=== PATIENT | male | born 1960 | race Caucasian/White ===

== ENCOUNTER 2017-09-27 22:02 | Inpatient (IN) | payer OTHER ==
[2017-09-28 00:05] LABS: Troponin I 0.862 ng/mL (< 0.028)
[2017-09-28] MEDS ORDERED: Ondansetron PF 4 MG/2 ML Vial IVP PRN (01:06)
[2017-09-28] MEDS ORDERED: Acetaminophen 325 MG TAB PO PRN (01:06)
[2017-09-28] MEDS ORDERED: Ondansetron ODT 4 MG TAB SL PRN (01:06)
[2017-09-28] MEDS ORDERED: Lactated Ringer's 1,000 ML IV SCH (01:15)
[2017-09-28 03:09] LABS: Troponin I 1.287 ng/mL (< 0.028)
[2017-09-28] MEDS ORDERED: Metoprolol Tartrate 25 MG TAB PO SCH ×2 (04:00→09:00)
[2017-09-28] MEDS ORDERED: Atorvastatin Calcium 20 MG TAB PO SCH ×2 (04:00→21:00)
[2017-09-28] MEDS ORDERED: Sodium Chloride 0.9% 1,000 ML IV SCH ×2 (04:00→12:15)
--- NOTE | 2017-09-28 07:29 | HP ---
PRIMARY CARE PHYSICIAN: Not reported. CODE STATUS: FULL CODE. TIME OF EVALUATION: 5 pm CHIEF COMPLAINT: Chest pain. HISTORY OF PRESENT ILLNESS: This is a 56-year-old male patient with past medical history of hyperlipidemia, who presents to the ED in [place] due to chest pain. The patient reported it was left-sided, the first time in his life that he is feeling the chest pain, lasted for 15 minutes, it got better by itself, pressure-like, no clear triggers, no alleviating factors. Initial troponin 0.3 has come up to 1.0, admitted to the hospital for non-STEMI. REVIEW OF SYSTEMS: Constitutional: No fever, no chills, generalized weakness. Respiratory: No cough, sputum production or shortness of breath. Cardiovascular: Chest pain as described in HPI. No palpitation or shortness of breath. Gastrointestinal: No nausea, no vomiting, diarrhea or abdominal pain. Central Nervous System: No dizziness, headache or feeling lightheaded. Genitourinary: No burning on urination. Extremities: No leg swelling. All other systems were reviewed and negative except for the findings mentioned above. PAST MEDICAL HISTORY: Hepatitis C, history of kidney stones, hyperlipidemia, high cholesterol. PAST SURGICAL HISTORY: No surgical history. PSYCHIATRIC HISTORY: No previous psychiatric history. SOCIAL HISTORY: History of abusing methamphetamines, last time use was years ago. Former cigarette smoker, quit less than 10 years ago. KNOWN ALLERGIES: No known drug allergies. REPORTED MEDICATIONS: None. PHYSICAL EXAMINATION: VITAL SIGNS: Blood pressure 145/95 with heart rate 68, respiratory rate was 24 , temperature 98.2, oxygen saturation 95% on room air. GENERAL APPEARANCE: Patient is alert, oriented, not in any acute distress. HEENT: Eyes: Normal conjunctivae. Moist oral mucosa. Anicteric. NECK: No JVD. RESPIRATORY: Bilateral air entry. No rales, no wheezing. Symmetric expansion. CARDIOVASCULAR: Normal rate, regular rhythm. No murmurs, no gallop. No edema. ABDOMEN: Soft, normal bowel sounds. MUSCULOSKELETAL: Baseline range of motion and strength. No tenderness. SKIN: Warm and intact. No pallor, no rash, no redness. NEUROLOGIC: Baseline sensorium. No evidence of any new focal weakness. Baseline speech. Cranial nerves seem to be intact. PSYCHIATRIC: The patient is in good mood. No anxiety, oriented. No optimal judgment. IMAGING: EKG was reviewed, normal sinus rhythm with a rate of 67, MO 166, QRS 78, QT corrected 395. LABORATORY DATA: Reviewed. White count 3.7, hemoglobin 15.4, MCV 82, platelet count 195,000. Chemistry: Sodium 140, potassium 4.1, chloride 105, carbon dioxide 23, anion gap 16, BUN 8, creatinine 0.8, GFR greater than 90, glucose 136. LFTs were negative. Troponin, the last one was 1.2, initially was 0.3 and 0.8. ASSESSMENT AND PLAN: The patient will be placed in the hospital for the following medical problems. 1. Ebf-JF-[id number] elevation myocardial infarction, the patient has been placed in anticoagulation, aspirin, beta giovanna, statin. Further treatment as per Cardiology recommendation, likely to do cardiac cath . 2. Hyperlipidemia, low cholesterol diet is advised, started on statins. 3. Deep venous thrombosis prophylaxis. MTDD
[2017-09-28] MEDS ORDERED: Enoxaparin Sodium 80 MG/0.8 ML SYRINGE SC SCH (08:00)
[2017-09-28] MEDS ORDERED: Aspirin 325 MG TAB PO SCH (08:00)
[2017-09-28] MEDS: Metoprolol Tartrate 25 MG TAB PO SCH ×2 (08:47→20:12)
[2017-09-28] MEDS ORDERED: Communication Order-Pharmacy FS SCH (09:15)
[2017-09-28] MEDS ORDERED: Nitroglycerin 0.4 MG TAB (25 Tab Bottle) SL PRN (12:01)
[2017-09-28] MEDS ORDERED: Lisinopril 2.5 MG TAB PO SCH (13:15)
[2017-09-28] MEDS ORDERED: Iopamidol 370 76% 100 ML VIAL ONE (14:42)
[2017-09-28] MEDS: TICAGRELOR 90 MG TABLET PO SCH (20:11)
[2017-09-29 05:25] VITALS: BMI 26.4
[2017-09-29 05:32] LABS: Hemoglobin 14.7 g/dL (14.0-18.0); Platelet Count 165 thou/uL (130-400)
[2017-09-29 05:33] LABS: #Basophils 0.1 thou/uL (0.0-0.2); #Eosinphils 0.2 thou/uL (0.0-0.7); #Lymphocytes 2.5 thou/uL (1.20-3.40); #Monocytes 0.7 thou/uL (0.11-0.59); #Neutrophils 5.8 thou/uL (1.40-6.50); %Basophils 0.7 % (0.0-1.0); %Eosinophils 1.7 % (0.0-10.0); %Monocytes 7.7 % (0.0-10.0); %Neutrophils 62.9 % (42.0-75.0); Hemoglobin 14.8 g/dL (14.0-18.0); Mean Corpuscular HGB CONC 34.5 g/dL (32.0-36.0); Mean Corpuscular Hemoglobin 31.4 pg (27.0-31.0); Mean Corpuscular Volume 91.1 fL (78.0-98.0); Mean Platelet Volume 8.4 fL (7.4-10.4); Platelet Count 170 thou/uL (130-400); RBC Distribution Width 13.3 % (11.5-14.5); Red Blood Cell (RBC) Count 4.72 mill/uL (4.70-6.10); White Blood Cell (WBC) Count 9.2 thou/uL (4.8-10.8)
[2017-09-29 05:42] LABS: ALT (SGPT) 21 U/L (8-55); AST (SGOT) 16 U/L (5-34); Albumin 3.9 g/dL (3.5-5.0); Alkaline Phosphatase 57 U/L (40-150); Anion Gap 14 mmol/L (10-20); BUN (Urea Nitrogen) 9 mg/dL (8.4-25.7); Bilirubin, Total 0.4 mg/dL (0.2-1.2); Calc. Creatinine Clearance 120 mL/min (70-130); Calcium 9.2 mg/dL (7.8-10.44); Carbon Dioxide 19 mmol/L (22-29); Chloride 108 mmol/L (98-107); Estimated GFR-MDRD Greater than 90; Globulin 2.5 g/dL (2.4-3.5); Glucose 92 mg/dL (70-105); Potassium 4.1 mmol/L (3.5-5.1); Protein, Total 6.4 g/dL (6.0-8.3); Sodium 137 mmol/L (136-145)
[2017-09-29] MEDS: Lisinopril 2.5 MG TAB PO SCH (08:26)
[2017-09-29] MEDS: TICAGRELOR 90 MG TABLET PO SCH ×2 (08:26→20:30)
[2017-09-29] MEDS: Metoprolol Tartrate 25 MG TAB PO SCH (08:26)
--- NOTE | 2017-09-29 08:47 | PDOC.PN ---
- Subjective Encounter Start Date: 09/29/17 Encounter Start Time: 08:45 Mr. Bear was seen today in follow-up of CAD. Hehas had a STENT placed to the LAD. He does not have any complaints this morning. - Objective MAR Reviewed: Yes Vital Signs & Weight: Vital Signs (12 hours) Temp Pulse Resp BP Pulse Ox 09/29/17 08:22 97.3 F L 62 16 113/71 94 L 09/29/17 04:00 97.5 F L 57 L 112/75 96 09/29/17 00:00 55 L 111/66 Weight Weight 163 lb 11.2 oz I&O: 09/28/17 09/29/17 09/30/17 06:59 06:59 06:59 Intake Total 250 1987 Output Total 1645 Balance 250 342 Result Diagrams: 09/29/17 05:17 09/29/17 05:14 Phys Exam - Physical Examination HEENT: PERRLA Respiratory: no wheezing, no rales, no rhonchi, clear to auscultation bilateral Cardiovascular: RRR, no significant murmur, no rub Gastrointestinal: soft, non-tender, positive bowel sounds Musculoskeletal: no edema Dx/Plan (1) NSTEMI (non-ST elevated myocardial infarction) Code(s): I21.4 - NON-ST ELEVATION (NSTEMI) MYOCARDIAL INFARCTION Status: Acute (2) Hypertension Code(s): I10 - ESSENTIAL (PRIMARY) HYPERTENSION Status: Acute (3) Dyslipidemia Code(s): E78.5 - HYPERLIPIDEMIA, UNSPECIFIED Status: Acute - Plan * CAD s/p STENT to the LAD- he is clinically stable * HTN- his blood pressure has been a bit low- medications are to be adjusted by Cardiology * Dyslipidemia- patient has known hyperlipdemia , but a history of being sensitive to statins- will check his levels. * Dispo per Cardiology
[2017-09-29 09:24] LABS: Cardiac Risk 9.7 (Less than 4.5); Cholesterol 331 mg/dl (< 200 Desired); HDL Cholesterol 34 mg/dL (>60 Neg Risk); Triglycerides 785 mg/dL (Less than 150)
[2017-09-29] MEDS: ICOSAPENT ETHYL PO SCH (20:30)
[2017-09-29] MEDS: [UNRECOGNIZED DRUG - OTHER] PO SCH (20:30)
[2017-09-29] MEDS ORDERED: Rosuvastatin 10 MG TAB PO SCH (21:00)
[2017-09-30 08:03] VITALS: BP 107/79; TEMP 98
[2017-09-30] MEDS: ICOSAPENT ETHYL PO SCH (08:26)
[2017-09-30] MEDS: [UNRECOGNIZED DRUG - OTHER] PO SCH (08:26)
[2017-09-30] MEDS: Lisinopril 2.5 MG TAB PO SCH (08:28)
[2017-09-30] MEDS: TICAGRELOR 90 MG TABLET PO SCH (08:28)
--- NOTE | 2017-09-30 09:02 | PDOC.PN ---
- Subjective Encounter Start Date: 09/30/17 Encounter Start Time: 09:01 Mr. Bear was seen today in follow-up. He does not have any complaints this morning. - Objective MAR Reviewed: Yes Vital Signs & Weight: Vital Signs (12 hours) Temp Pulse Resp BP Pulse Ox 09/30/17 08:00 98 F 66 18 107/79 09/30/17 04:00 98.5 F 65 20 117/71 95 Weight Weight 161 lb 8 oz I&O: 09/29/17 09/30/17 10/01/17 06:59 06:59 06:59 Intake Total 1987 840 Output Total 1645 Balance 342 840 Result Diagrams: 09/29/17 05:17 09/29/17 05:14 Phys Exam - Physical Examination HEENT: PERRLA Respiratory: no wheezing, no rales, no rhonchi, clear to auscultation bilateral Cardiovascular: RRR, no significant murmur, no rub Gastrointestinal: soft, non-tender, positive bowel sounds Musculoskeletal: no edema Dx/Plan (1) NSTEMI (non-ST elevated myocardial infarction) Code(s): I21.4 - NON-ST ELEVATION (NSTEMI) MYOCARDIAL INFARCTION Status: Acute (2) Hypertension Code(s): I10 - ESSENTIAL (PRIMARY) HYPERTENSION Status: Acute (3) Dyslipidemia Code(s): E78.5 - HYPERLIPIDEMIA, UNSPECIFIED Status: Acute - Plan * NSTEMI- stable * HTN- blood pressure is stable * Discussed with Cardiology- he can be discharged home today..
--- NOTE | 2017-09-30 14:28 | DIS ---
PRIMARY CARE PHYSICIAN: The patient does not have a primary care physician. DATE OF ADMISSION: 09/27/2017 DATE OF DISCHARGE: 09/30/2017 DISCHARGE DISPOSITION: Home. PRIMARY DISCHARGE DIAGNOSES: 1. Yqi-GN-cmjbsci elevation myocardial infarction. 2. Dyslipidemia. 3. Hypertension. DISCHARGE MEDICATIONS: Include Vascepa 2 grams twice a day, Brilinta 90 mg twice daily, Crestor 10 m g daily, metoprolol XL 30 mg daily, aspirin 81 mg a day. PROCEDURES DONE DURING ADMISSION: The patient had a cardiac catheterization and had a stent placed t o the LAD with a drug-eluting stent and there was some severe proximal LAD disease seen. The patient also had an echocardiogram that showed an ejection fraction of 50-55%. The apex was hypokinetic. CODE STATUS: Full code. ALLERGIES: No known drug allergies. HOSPITAL COURSE: Mr. Bear is a pleasant 56-year-old gentleman who presented to the emergency room w ith complaints of chest pain. He was evaluated in the ER, and it was noted that he had elevated trop onins, which peaked at 1.287. He was taken emergently to the [facility] and underwent a successful PCI and stent placement to the LAD. He was monitored in the hospital overnight and did not have any fur ther complaints. He had been on statins before, but had stopped taking them due to the elevated live r function test. These will be restarted at least temporarily as well as placing him on Vascepa and he will follow up with Dr. Hung as recommended.
--- NOTE | 2017-10-09 11:17 | EKG ---
Test Reason : Blood Pressure : / mmHG Vent. Rate : 067 BPM Atrial Rate : 067 BPM P-R Int : 166 ms QRS Dur : 078 ms QT Int : 374 ms P-R-T Axes : 065 022 049 degrees QTc Int : 395 ms Normal sinus rhythm Normal ECG Confirmed by MARTI COOL DO ([id number]), field map editor LAURE PEDERSON ([id number] on 10/09/2017 11:17:40 AM Referred By: Confirmed By:MARTI COOL DO
--- NOTE | 2017-12-20 16:51 | EKG ---
Test Reason : POST STENT Blood Pressure : / mmHG Vent. Rate : 055 BPM Atrial Rate : 055 BPM P-R Int : 160 ms QRS Dur : 098 ms QT Int : 482 ms P-R-T Axes : 008 094 096 degrees QTc Int : 461 ms Sinus bradycardia Rightward axis T wave abnormality, consider anterolateral ischemia Prolonged QT Abnormal ECG No previous ECGs available Confirmed by SALEEM MONTERROSO M.D. ([id number] on 12/20/2017 4:51:36 PM Referred By: KRISS Confirmed By:SALEEM MONTERROSO M.D.
--- NOTE | 2017-12-20 16:57 | EKG ---
Test Reason : Blood Pressure : / mmHG Vent. Rate : 060 BPM Atrial Rate : 060 BPM P-R Int : 174 ms QRS Dur : 098 ms QT Int : 480 ms P-R-T Axes : 022 095 120 degrees QTc Int : 480 ms Normal sinus rhythm Rightward axis Marked T wave abnormality, consider anterolateral ischemia Prolonged QT Abnormal ECG When compared with ECG of 27-SEP-2017 22:24, (Unconfirmed) T wave inversion now evident in Anterolateral leads QT has lengthened Confirmed by SALEEM MONTERROSO M.D. ([id number] on 12/20/2017 4:57:31 PM Referred By: KRISS Confirmed By:SALEEM MONTERROSO M.D.
== END 2017-09-30 10:52 | disposition home or self-care (01) | DRG 247 ==
LOC: ERS 22:02 → 2NO 22:56
PROVIDERS: ADMIT Hospitalist; ATTEND Hospitalist
PROC: 027034Z Dilation of Coronary Artery, One Artery with Drug-eluting Intraluminal Device, Percutaneous Approach (ICD-10-PCS; principal; 2017-09-27)
PROC: 4A023N7 Measurement of Cardiac Sampling and Pressure, Left Heart, Percutaneous Approach (ICD-10-PCS; 2017-09-27)
PROC: B2111ZZ Fluoroscopy of Multiple Coronary Arteries using Low Osmolar Contrast (ICD-10-PCS; 2017-09-27)
PROC: B2151ZZ Fluoroscopy of Left Heart using Low Osmolar Contrast (ICD-10-PCS; 2017-09-27)
DX: I21.4 Non-ST elevation (NSTEMI) myocardial infarction (principal); E78.5 Hyperlipidemia, unspecified; I10 Essential (primary) hypertension; Z86.19 Personal history of other infectious and parasitic diseases; Z87.891 Personal history of nicotine dependence
CPT/HCPCS: 36415; 80053; 80061; 84484; 85014; 85018; 85025; 85049; 85347; 92928; 93005; 93010; 93306; 93458; 93798; 96372; 99152; 99153; C1769; C1874; C9600